=== PATIENT | female | born 1990 | race Caucasian/White ===

== ENCOUNTER 2017-06-15 11:51 | Emergency (ER) | payer MEDICAID, OTHER ==
[2017-06-15 11:51] VITALS: BMI 21.6
[2017-06-15 13:51] LABS: HCG,QUALITATIVE URINE NEGATIVE (NEGATIVE)
[2017-06-15] MEDS ORDERED: Sodium Chloride 0.9% 1,000 ML IV ONE (13:53)
[2017-06-15 13:58] LABS: SQUAMOUS EPITHIAL 3 /hpf (0-5); URINE BACTERIA RARE (<OCC); URINE BILIRUBIN NEGATIVE (NEGATIVE); URINE BLOOD NEGATIVE (NEGATIVE); URINE CLARITY Clear (Clear); URINE COLOR Yellow (YELLOW); URINE GLUCOSE (UA) NORMAL (Normal); URINE LEUKOCYTE ESTERASE TRACE Leu/uL (Negative); URINE NITRATE NEGATIVE (NEGATIVE); URINE PROTEIN NEGATIVE (NEGATIVE); URINE UROBILINOGEN NORMAL mg/dL (0.2-1.0)
[2017-06-15] MEDS ORDERED: Sodium Chloride 0.9% 1,000 ML ONE (14:00)
[2017-06-15 14:02] LABS: BASO # 0.1 K/uL (0.0-0.2); BASO % 0.8 % (0.0-2.0); EOS # 0.1 K/uL (0.0-0.7); EOS % 1.2 % (0.0-4.0); HEMOGLOBIN 12.5 g/dL (11.0-16.0); LYMPH # 2.1 K/uL (1.0-4.3); LYMPH % 28.5 % (20.0-40.0); MEAN CORPUSCULAR HEMOGLOBIN 32.5 pg (27.0-31.0); MEAN PLATELET VOLUME 8.6 fL (7.2-11.7); MONO # 0.5 K/uL (0.0-0.8); MONO % 6.7 % (0.0-10.0); NEUT # 4.7 K/uL (1.8-7.0); NEUT % 62.8 % (50.0-75.0); NRBC % 0.1 % (0.0-2.0); RBC 3.85 Mil/uL (3.80-5.20); RED CELL DISTRIBUTION WIDTH 13.3 % (11.5-14.5); WHITE BLOOD COUNT 7.5 K/uL (4.8-10.8)
[2017-06-15 14:28] LABS: ALB/GLOB RATIO 1.5 (1.0-2.1); ALT/SGPT 26 U/L (9-52); AST/SGOT 19 U/L (14-36); BLOOD UREA NITROGEN 9 mg/dL (7-17); CALCIUM 8.5 mg/dl (8.6-10.4); GFR AFRICAN-AMERICAN > 60; GFR NON-AFRICAN AMERICAN > 60; LIPASE 95 U/L (23-300)
--- NOTE | 2017-06-15 14:46 | C.PDOC ---
Time Seen by Provider: 06/15/17 13:06 Chief Complaint (Nursing): Abdominal Pain History Per: Patient Onset/Duration Of Symptoms: Days (about 2 months), Waxing/Waning Current Symptoms Are (Timing): Still Present Severity: Moderate Location Of Pain/Discomfort: LUQ Quality Of Discomfort: Unable To Describe, "Pain" Exacerbating Factors: Food Alleviating Factors: None Additional History Per: Prior Records Past Medical History Reviewed: Historical Data, Nursing Documentation, Vital Signs Vital Signs: Last Vital Signs Temp 98.7 F 06/15/17 11:54 Pulse 70 06/15/17 11:54 Resp 16 06/15/17 11:54 BP 105/65 06/15/17 11:54 Pulse Ox 96 06/15/17 11:54 - Medical History PMH: Anxiety, Asthma, Depression, Kidney Stones Other Surgeries: No abdominal surgeries. - [facility] Procedures ANESTH INJECT-SPIN CANAL (04/23/13) MONITORING NOS (03/25/13) MANUAL ASSIST DELIV NEC (04/23/13) Family History: States: Unknown Family Hx - Social History Hx Tobacco Use: No Hx Alcohol Use: No Hx Substance Use: Yes - Immunization History Hx Tetanus Toxoid Vaccination: No Hx Influenza Vaccination: No Hx Pneumococcal Vaccination: No Review Of Systems Except As Marked, All Systems Reviewed And Found Negative. Constitutional: Negative for: Weakness Cardiovascular: Negative for: Chest Pain Respiratory: Negative for: Shortness of Breath, Hemoptysis Gastrointestinal: Positive for: Nausea, Vomiting, Abdominal Pain. Negative for : Diarrhea, Constipation Genitourinary: Negative for: Dysuria Musculoskeletal: Negative for: Neck Pain, Leg Pain Skin: Negative for: Rash Neurological: Negative for: Weakness, Numbness Physical Exam - Physical Exam Appears: Non-toxic, No Acute Distress Skin: Normal Color, Warm, Dry, No Rash Head: Atraumatic, Normacephalic Eye(s): bilateral: Normal Inspection, PERRL, EOMI Neck: Normal ROM, Supple Cardiovascular: Rhythm Regular Respiratory: Normal Breath Sounds, No Accessory Muscle Use Gastrointestinal/Abdominal: Soft, Tenderness (LUQ, mild), No Distention, No Guarding, No Rebound Extremity: Normal ROM, No Pedal Edema, No Calf Tenderness Neurological/Psych: Oriented x3, Normal Motor, Normal Sensation ED Course And Treatment - Laboratory Results Result Diagrams: 06/15/17 13:57 06/15/17 13:57 Lab Interpretation: No Acute Changes Urine POC: Negative O2 Sat by Pulse Oximetry: 96 Pulse Ox Interpretation: Normal Progress - Interventions Interventions:: Observation, Intravenous fluid - Medications Administered Intravenous: Antiemetic, H-2 natalie - Data Reviewed Data Reviewed: Lab, Old records - Patient Status Patient status: Mostly improved - Continuity of Care Discussed patient case with:: Patient, ED Nurse - Patient Plan Patient Plan: Discharge, F/U with PCP Disposition Counseled Patient/Family Regarding: Studies Performed, Diagnosis, Need For Followup, Rx Given - Disposition Referrals: [facility] [Outside] Disposition: HOME/ ROUTINE Disposition Time: 14:51 Condition: IMPROVED Additional Instructions: Follow up in the clinic within 1-2 weeks for further evaluation and treatment. Return to the ER if you develop worsening of symptoms or if you have any other concerns. Prescriptions: Famotidine [Pepcid] 20 mg PO BID #30 tab Instructions: Gastritis (ED) - Clinical Impression Clinical Impression: Abdominal pain, Nausea and vomiting
[2017-06-15 15:02] VITALS: BP 98/65; PULSE 64; RESP 20; TEMP 97.5; O2SAT 99
== END 2017-06-15 15:37 | disposition home or self-care (01) ==
LOC: C.ER 11:51
DX: R10.12 Left upper quadrant pain (principal); R11.2 Nausea with vomiting, unspecified
CPT/HCPCS: 80053; 81001; 83690; 84703; 85025; 96361; 96374; 96375; 99285; J2765; J7040

== ENCOUNTER 2018-01-04 09:28 | Emergency (ER) | payer MEDICAID, OTHER ==
[2018-01-04 09:28] VITALS: BMI 21.6
[2018-01-04 09:37] VITALS: O2SAT 98
[2018-01-04] MEDS ORDERED: Sodium Chloride 0.9% 1,000 ML IV ONE (10:00)
[2018-01-04] MEDS ORDERED: Sodium Chloride 0.9% 1,000 ML ONE (10:20)
[2018-01-04 10:29] LABS: BASO % 0.8 % (0.0-2.0); EOS # 0.1 K/uL (0.0-0.7); EOS % 0.9 % (0.0-4.0); HEMOGLOBIN 12.2 g/dL (11.0-16.0); LYMPH # 1.4 K/uL (1.0-4.3); LYMPH % 22.7 % (20.0-40.0); MEAN CELL VOLUME 93.2 fL (81.0-99.0); MEAN CORPUSCULAR HEMOGLOBIN 32.3 pg (27.0-31.0); MEAN CORPUSCULAR HGB CONC 34.7 g/dL (33.0-37.0); MEAN PLATELET VOLUME 8.5 fL (7.2-11.7); MONO # 0.5 K/uL (0.0-0.8); MONO % 7.4 % (0.0-10.0); NEUT # 4.2 K/uL (1.8-7.0); NEUT % 68.2 % (50.0-75.0); RBC 3.77 Mil/uL (3.80-5.20); RED CELL DISTRIBUTION WIDTH 13.1 % (11.5-14.5); WHITE BLOOD COUNT 6.1 K/uL (4.8-10.8)
[2018-01-04 10:49] LABS: ALB/GLOB RATIO 1.7 (1.0-2.1); ALBUMIN 4.3 g/dL (3.5-5.0); ALT/SGPT 30 U/L (9-52); AST/SGOT 13 U/L (14-36); BLOOD UREA NITROGEN 5 mg/dL (7-17); GFR AFRICAN-AMERICAN > 60; GFR NON-AFRICAN AMERICAN > 60; LIPASE 37 U/L (23-300)
[2018-01-04 11:12] LABS: URINE BILIRUBIN NEGATIVE (NEGATIVE); URINE BLOOD NEGATIVE (NEGATIVE); URINE CLARITY Clear (Clear); URINE COLOR Yellow (YELLOW); URINE GLUCOSE (UA) NORMAL (Normal); URINE LEUKOCYTE ESTERASE NEG Leu/uL (Negative); URINE PROTEIN NEGATIVE (NEGATIVE); URINE UROBILINOGEN NORMAL mg/dL (0.2-1.0)
--- NOTE | 2018-01-04 13:17 | C.PDOC ---
History Of Present Illness 27 year old female presents to the ED for evaluation of left-sided abdominal pain (contrary to triage) which began 2 days ago. Patient also complains of nausea, vomiting, and dysuria. She denies fever, chills, vaginal bleeding/ discharge. Time Seen by Provider: 01/04/18 09:44 Chief Complaint (Nursing): Abdominal Pain History Per: Patient History/Exam Limitations: no limitations Onset/Duration Of Symptoms: Days (2) Current Symptoms Are (Timing): Still Present Location Of Pain/Discomfort: Other (left-sided ) Radiation Of Pain To:: None Quality Of Discomfort: "Pain" Associated Symptoms: Nausea, Vomiting, Urinary Symptoms (dysuria ). denies: Fever, Chills Additional History Per: Patient Abnormal Vaginal Bleeding: No Past Medical History Reviewed: Historical Data, Nursing Documentation, Vital Signs Vital Signs: Last Vital Signs Temp 98.5 F 01/04/18 13:00 Pulse 60 01/04/18 13:00 Resp 18 01/04/18 13:00 BP 125/69 01/04/18 13:00 Pulse Ox 98 01/04/18 13:48 - Medical History PMH: Anemia, Anxiety, Asthma, Back Problems, Depression, Kidney Stones Surgical History: No Surg Hx - [facility] Procedures ANESTH INJECT-SPIN CANAL (04/23/13) MONITORING NOS (03/25/13) MANUAL ASSIST DELIV NEC (04/23/13) Family History: States: Unknown Family Hx - Social History Hx Tobacco Use: No Hx Alcohol Use: No Hx Substance Use: No - Immunization History Hx Tetanus Toxoid Vaccination: No Hx Influenza Vaccination: No Hx Pneumococcal Vaccination: No Review Of Systems Constitutional: Negative for: Fever, Chills Gastrointestinal: Positive for: Nausea, Vomiting, Abdominal Pain (left-sided ) Genitourinary: Positive for: Dysuria. Negative for: Vaginal Discharge, Vaginal Bleeding Physical Exam - Physical Exam Appears: Non-toxic, No Acute Distress Skin: Normal Color, Warm, Dry Head: Atraumatic, Normacephalic Eye(s): bilateral: Normal Inspection Oral Mucosa: Moist Neck: Supple Chest: Symmetrical, No Deformity, No Tenderness Cardiovascular: Rhythm Regular, No Murmur Respiratory: Normal Breath Sounds, No Rales, No Rhonchi, No Wheezing Gastrointestinal/Abdominal: Soft, Tenderness (left lower quadrant ), No Guarding , No Rebound Back: CVA Tenderness (left-sided) Extremity: Normal ROM, Capillary Refill (less than 2 seconds ) Neurological/Psych: Oriented x3, Normal Speech, Normal Cognition ED Course And Treatment - Laboratory Results Result Diagrams: 01/04/18 10:16 01/04/18 10:16 O2 Sat by Pulse Oximetry: 98 (on RA) Pulse Ox Interpretation: Normal - CT Scan/US OB pelvic US Other Rad Studies (CT/US): Read By Radiologist, Radiology Report Reviewed CT/US Interpretation: PROCEDURE: OB Pelvic Ultrasound. HISTORY: abd. pain. LMP: Unknown. Serum beta HCG [id number]. COMPARISON: No relevant prior imaging. FINDINGS: UTERUS: Gestational sac: Single intrauterine gestation. Measures 1.9 cm compatible with estimated gestational age of 6 weeks, 3 days. Yolk sac: Measures 0.4 cm. pole: [place]-rump length measures 0.4 cm compatible with estimated gestational age 6 weeks, 1 day. Heart rate: 118 bpm. age (Ultrasound estimated): 6 weeks, 2 days. Nancy-gestational hemorrhage: None. Date of delivery (Ultrasound estimated) : 08/28/2018. Uterus measures 11.2 x 5.6 x 5.9 cm. Anteverted. Normal in size and appearance. CERVIX: Measures 3.3 cm. Long and closed. No cervical abnormality seen. RIGHT OVARY: Measures 2.9 x 1.8 x 2.5 cm. No mass lesion. Normal flow. LEFT OVARY: Measures 3.5 x 2.9 x 3.8 cm. No solid mass. Normal flow. FREE FLUID: None. OTHER FINDINGS: None. IMPRESSION: Single live intrauterine with average ultrasound age of 6 weeks, 2 days. heart rate 118 beats per minute. Cervix long and closed. . Medical Decision Making Medical Decision Making: Assessment: 27 year old female with abdominal pain Progress: Bloodwork, urinalysis, OB Transvaginal Ultrasound, Obstructive Series ordered. Pepcid IVP, Reglan IVP, Tylenol PO, Zofran IVP, and IV Fluids given. threatened miscarriage patient resting comfortably. Will discharge home to follow up with ob in 2 days Disposition Counseled Patient/Family Regarding: Studies Performed, Diagnosis, Need For Followup, Rx Given - Disposition Referrals: [facility] [Outside] [facility] [Outside] Disposition: HOME/ ROUTINE Disposition Time: 13:32 Condition: STABLE Additional Instructions: follow up with clinic within 2 days call to make an appointment take medications as needed return to ER if symptoms worsens or progress Prescriptions: Ondansetron ODT [Zofran ODT] 4 mg PO TID PRN #12 odt PRN Reason: Nausea/Vomiting Instructions: Threatened Miscarriage (DC) Forms: [facility] (Thai), General Discharge Instructions - Clinical Impression Clinical Impression: Threatened miscarriage - Scribe Statement The provider has reviewed the documentation as recorded by the Scribe (Melinda Loya) Provider Attestation: All medical record entries made by the Scribe were at my direction and personally dictated by me. I have reviewed the chart and agree that the record accurately reflects my personal performance of the history, physical exam, medical decision making, and the department course for this patient. I have also personally directed, reviewed, and agree with the discharge instructions and disposition.
--- NOTE | 2018-01-04 13:24 | US ---
Date of service: 01/04/2018 PROCEDURE: OB Pelvic Ultrasound HISTORY: abd. pain LMP: Unknown Serum beta HCG [id number] COMPARISON: No relevant prior imaging. FINDINGS: UTERUS: Gestational sac: Single intrauterine gestation. Measures 1.9 cm compatible with estimated gestational age of 6 weeks, 3 days. Yolk sac: Measures 0.4 cm. pole: [place]-rump length measures 0.4 cm compatible with estimated gestational age 6 weeks, 1 day. Heart rate: 118 bpm. age (Ultrasound estimated): 6 weeks, 2 days Nancy-gestational hemorrhage: None. Date of delivery (Ultrasound estimated) : 08/28/2018 Uterus measures 11.2 x 5.6 x 5.9 cm. Anteverted. Normal in size and appearance. CERVIX: Measures 3.3 cm. Long and closed. No cervical abnormality seen. RIGHT OVARY: Measures 2.9 x 1.8 x 2.5 cm. No mass lesion. Normal flow. LEFT OVARY: Measures 3.5 x 2.9 x 3.8 cm. No solid mass. Normal flow. FREE FLUID: None. OTHER FINDINGS: None. IMPRESSION: Single live intrauterine with average ultrasound age of 6 weeks, 2 days. heart rate 118 beats per minute. Cervix long and closed. .
[2018-01-04 13:25] VITALS: BP 125/69; PULSE 60; RESP 18; TEMP 98.5
== END 2018-01-04 13:50 | disposition home or self-care (01) ==
LOC: C.ER 09:28
DX: O20.0 Threatened abortion (principal); Z3A.01 Less than 8 weeks gestation of pregnancy
CPT/HCPCS: 76801; 80053; 81001; 83690; 84702; 85025; 96361; 96374; 96375; 99284; J2405; J2765; J7030

== ENCOUNTER 2018-01-08 10:51 | Emergency (ER) | payer OTHER ==
[2018-01-08 10:54] VITALS: BMI 21.1
[2018-01-08 10:57] VITALS: PULSE 85; RESP 18
[2018-01-08] MEDS ORDERED: Lactated Ringer's 1,000 ML IV STA (11:00)
--- NOTE | 2018-01-08 11:23 | C.PDOC ---
History Of Present Illness 27 year old female patient who is 6 weeks and 4 days (confirmed by US) with hx of asthma presents to the ER with partner with c/o abdominal pain and daily vomiting. Patient reports she has been vomiting everyday for about 3 weeks. She also states that sometimes during her vomiting episodes, she would also have diarrhea. Patient claims that her other two have the same symptoms. Associative symptoms are SOB, sweating, and chills. Patient also says "I can't keep still". Her LNMP was in October 2017. Patient notes she made an appointment with Dr. 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 , P: 1, A: 1. Time Seen by Provider: 01/08/18 11:00 Chief Complaint (Nursing): GI Problem History Per: Patient, Other (partner) History/Exam Limitations: no limitations Onset/Duration Of Symptoms: Days ([id number]) Current Symptoms Are (Timing): Still Present Context: Other (6 weeks, 4 days ) Past Medical History Reviewed: Historical Data, Nursing Documentation, Vital Signs Vital Signs: Last Vital Signs Temp 97.6 F 01/08/18 10:54 Pulse 85 01/08/18 10:54 Resp 18 01/08/18 10:54 BP 135/83 01/08/18 10:54 Pulse Ox 96 01/08/18 11:31 - Medical History PMH: Anemia, Anxiety, Asthma, Back Problems, Depression, Kidney Stones - [facility] Procedures ANESTH INJECT-SPIN CANAL (04/23/13) MONITORING NOS (03/25/13) MANUAL ASSIST DELIV NEC (04/23/13) Family History: States: Unknown Family Hx - Social History Hx Tobacco Use: No Hx Alcohol Use: No Hx Substance Use: No - Immunization History Hx Tetanus Toxoid Vaccination: No Hx Influenza Vaccination: No Hx Pneumococcal Vaccination: No Review Of Systems Except As Marked, All Systems Reviewed And Found Negative. Constitutional: Positive for: Chills, Sweats Respiratory: Positive for: Shortness of Breath Gastrointestinal: Positive for: Vomiting, Diarrhea Physical Exam - Physical Exam Appears: Well, Non-toxic, No Acute Distress Skin: Normal Color, Warm, Dry Head: Atraumatic, Normacephalic Eye(s): bilateral: Normal Inspection Tongue: Other (slightly dry ) Throat: Normal Neck: Normal ROM, Supple Chest: Symmetrical, No Deformity Cardiovascular: Rhythm Regular Respiratory: Normal Breath Sounds, No Rales, No Rhonchi, No Wheezing Gastrointestinal/Abdominal: Soft, Tenderness (lower abdominal tenderness) Back: No CVA Tenderness Extremity: Normal ROM (x4) Neurological/Psych: Oriented x3, Normal Speech, Normal Motor, Normal Sensation, Normal Reflexes Gait: Steady ED Course And Treatment O2 Sat by Pulse Oximetry: 96 (RA) Pulse Ox Interpretation: Normal Medical Decision Making Medical Decision Making: Initial impression: Hyperemesis gravidarum. Plans: -- Lactated Ringers IV fluids -- Reglan 10 mg -- Blood work -- UA Disposition - Disposition Forms: [employer] (Frisian) - Scribe Statement The provider has reviewed the documentation as recorded by the Mariela Dubois Do Provider Attestation: All medical record entries made by the Scribe were at my direction and personally dictated by me. I have reviewed the chart and agree that the record accurately reflects my personal performance of the history, physical exam, medical decision making, and the department course for this patient. I have also personally directed, reviewed, and agree with the discharge instructions and disposition.
[2018-01-08] MEDS ORDERED: Lactated Ringer's 1,000 ML ONE (11:24)
--- NOTE | 2018-01-08 11:37 | C.PDOC ---
History Of Present Illness Pt is a 27 year old female patient who is 6 weeks and 4 days (by US) with hx of asthma presents to the ER with partner with c/o abdominal pain and daily vomiting. Patient reports she has been vomiting everyday for about 3 weeks. She also states that sometimes during her vomiting episodes, she would also have diarrhea. Patient claims that her other two have the same symptoms of "hyperemesis gravidarum". Associative symptoms are SOB, sweating, and chills. Patient also says "I can't keep still". Her LNMP was in October 2017. Patient notes she made an appointment with Dr. 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 , P: 1, A: 1. Pt states that she is not going to keep this baby. Pt has not weighed herself so she is unsure if she has lost weight w/ this . Pt here in ED with hyperemesis 2 days ago and had ultrasound showing an IUP. PMD: In [facility] Time Seen by Provider: 01/08/18 11:00 Chief Complaint (Nursing): GI Problem History Per: Patient, Other (Partner) History/Exam Limitations: no limitations Onset/Duration Of Symptoms: Days (x3 weeks) Current Symptoms Are (Timing): Still Present Past Medical History Reviewed: Historical Data, Nursing Documentation, Vital Signs Vital Signs: Last Vital Signs Temp 99.3 F 01/08/18 12:45 Pulse 85 01/08/18 12:45 Resp 18 01/08/18 10:54 BP 105/61 01/08/18 12:45 Pulse Ox 96 01/08/18 13:24 - Medical History PMH: Anemia, Anxiety, Asthma, Back Problems, Depression, Kidney Stones - [facility] Procedures ANESTH INJECT-SPIN CANAL (04/23/13) MONITORING NOS (03/25/13) MANUAL ASSIST DELIV NEC (04/23/13) Family History: States: Other Other Family History: Breast cancer - Social History Hx Tobacco Use: No Hx Alcohol Use: No Hx Substance Use: No - Immunization History Hx Tetanus Toxoid Vaccination: No Hx Influenza Vaccination: No Hx Pneumococcal Vaccination: No Review Of Systems Except As Marked, All Systems Reviewed And Found Negative. Constitutional: Positive for: Chills, Sweats Respiratory: Positive for: Shortness of Breath Gastrointestinal: Positive for: Vomiting, Abdominal Pain, Diarrhea Physical Exam - Physical Exam Appears: Well, Non-toxic, No Acute Distress Skin: Normal Color, Warm, Dry Head: Atraumatic, Normacephalic Eye(s): bilateral: Normal Inspection, EOMI Ear(s): Bilateral: Normal Nose: Normal Oral Mucosa: Moist Tongue: Other (slightly dry) Throat: Normal Neck: Normal ROM, Supple Chest: Symmetrical, No Deformity Cardiovascular: Rhythm Regular Respiratory: Normal Breath Sounds, No Rales, No Rhonchi, No Wheezing Gastrointestinal/Abdominal: Soft, Tenderness (Lower abdominal tenderness) Back: No CVA Tenderness Extremity: Normal ROM (x4) Neurological/Psych: Oriented x3, Normal Speech, Normal Motor, Normal Sensation, Normal Reflexes Gait: Steady ED Course And Treatment - Laboratory Results Result Diagrams: 01/08/18 11:48 01/08/18 11:48 O2 Sat by Pulse Oximetry: 96 (RA) Pulse Ox Interpretation: Normal Medical Decision Making Medical Decision Making: Initial impression: hyperemesis gravidarum Initial Plan: -- Lactated Ringer's IV fluids -- Reglan 10mg -- blood work -- UA 1:21 PM - Pt feels better. Will d/c home. Disposition Counseled Patient/Family Regarding: Diagnosis, Need For Followup, Rx Given - Disposition Disposition: HOME/ ROUTINE Disposition Time: 13:21 Condition: IMPROVED Additional Instructions: Karissayeny, thank you for letting us take care of you today. Return to the ER if your symptoms worsen, or if any problems. 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 Please be sure to go to this appointment. Take the medicine listed below as prescribed. / Prescriptions: Ondansetron ODT [Zofran ODT] 1 odt PO BID PRN #6 odt PRN Reason: Nausea/Vomiting Instructions: Hyperemesis Gravidarum, Nausea and Vomiting of (DC) Forms: [employer] (Upper Sorbian) Print Language: SPANISH - POA Present On Arrival: None - Clinical Impression Clinical Impression: Hyperemesis gravidarum - Scribe Statement The provider has reviewed the documentation as recorded by the Mariela Dubois Do Provider Attestation: All medical record entries made by the Scribe were at my direction and personally dictated by me. I have reviewed the chart and agree that the record accurately reflects my personal performance of the history, physical exam, medical decision making, and the department course for this patient. I have also personally directed, reviewed, and agree with the discharge instructions and disposition.
[2018-01-08 11:57] LABS: BASO % 0.4 % (0.0-2.0); EOS % 0.4 % (0.0-4.0); HEMOGLOBIN 13.2 g/dL (11.0-16.0); LYMPH # 1.2 K/uL (1.0-4.3); LYMPH % 13.7 % (20.0-40.0); MEAN CELL VOLUME 92.4 fL (81.0-99.0); MEAN CORPUSCULAR HEMOGLOBIN 32.6 pg (27.0-31.0); MEAN CORPUSCULAR HGB CONC 35.2 g/dL (33.0-37.0); MEAN PLATELET VOLUME 8.8 fL (7.2-11.7); MONO # 0.4 K/uL (0.0-0.8); MONO % 4.2 % (0.0-10.0); NEUT # 7.2 K/uL (1.8-7.0); NEUT % 81.3 % (50.0-75.0); RBC 4.04 Mil/uL (3.80-5.20); RED CELL DISTRIBUTION WIDTH 13.5 % (11.5-14.5); WHITE BLOOD COUNT 8.9 K/uL (4.8-10.8)
[2018-01-08] MEDS ORDERED: Sodium Chloride 0.9% 1,000 ML IV ONE (12:08)
[2018-01-08 12:10] LABS: ALB/GLOB RATIO 1.7 (1.0-2.1); ALBUMIN 4.6 g/dL (3.5-5.0); ALT/SGPT 20 U/L (9-52); AST/SGOT 17 U/L (14-36); BLOOD UREA NITROGEN 6 mg/dL (7-17); CALCIUM 9.3 mg/dl (8.6-10.4); GFR AFRICAN-AMERICAN > 60; GFR NON-AFRICAN AMERICAN > 60
[2018-01-08 12:45] VITALS: BP 105/61; TEMP 99.3
[2018-01-08 13:24] VITALS: O2SAT 96
[2018-01-08 13:24] LABS: SQUAMOUS EPITHIAL 16 /hpf (0-5); URINE BACTERIA RARE (<OCC); URINE BILIRUBIN NEGATIVE (NEGATIVE); URINE BLOOD NEGATIVE (NEGATIVE); URINE CLARITY Hazy (Clear); URINE COLOR Yellow (YELLOW); URINE GLUCOSE (UA) NORMAL (Normal); URINE LEUKOCYTE ESTERASE 1+ Leu/uL (Negative); URINE PROTEIN NEGATIVE (NEGATIVE); URINE UROBILINOGEN NORMAL mg/dL (0.2-1.0)
== END 2018-01-08 13:43 | disposition home or self-care (01) ==
LOC: C.ER 10:51
DX: O21.0 Mild hyperemesis gravidarum (principal); Z3A.01 Less than 8 weeks gestation of pregnancy
CPT/HCPCS: 80053; 81001; 84702; 85025; 96374; 99284; J2765; J7120

== ENCOUNTER 2018-01-20 08:53 | Emergency (ER) | payer OTHER ==
[2018-01-20 08:54] VITALS: BMI 21.1
[2018-01-20 09:07] VITALS: RESP 18; TEMP 97.9
--- NOTE | 2018-01-20 09:29 | C.PDOC ---
History Of Present Illness 27 y/o female currently 7 weeks presents to ED with c/o abdominal pain and back pain for 1 month associated with fever, chills, nausea and vomiting. Patient states symptoms are improved with CBD oil and denies diarrhea , dysuria, vaginal bleeding, vaginal discharge or any other complaints at this time. Time Seen by Provider: 01/20/18 09:09 Chief Complaint (Nursing): Abdominal Pain History Per: Patient History/Exam Limitations: no limitations Onset/Duration Of Symptoms: Days Current Symptoms Are (Timing): Still Present Past Medical History Reviewed: Historical Data, Nursing Documentation, Vital Signs Vital Signs: Last Vital Signs Temp 97.9 F 01/20/18 09:03 Pulse 86 01/20/18 14:44 Resp 18 01/20/18 14:44 BP 134/82 01/20/18 14:44 Pulse Ox 97 01/20/18 14:44 - Medical History PMH: Anemia, Anxiety, Asthma, Back Problems, Depression, Kidney Stones Surgical History: No Surg Hx - [facility] Procedures ANESTH INJECT-SPIN CANAL (04/23/13) MONITORING NOS (03/25/13) MANUAL ASSIST DELIV NEC (04/23/13) Family History: States: No Known Family Hx - Social History Hx Tobacco Use: No Hx Alcohol Use: No Hx Substance Use: Yes - Immunization History Hx Tetanus Toxoid Vaccination: No Hx Influenza Vaccination: No Hx Pneumococcal Vaccination: No Review Of Systems Constitutional: Positive for: Fever, Chills Gastrointestinal: Positive for: Nausea, Vomiting, Abdominal Pain Genitourinary: Negative for: Dysuria, Hematuria, Vaginal Bleeding Musculoskeletal: Positive for: Back Pain Skin: Negative for: Rash Neurological: Negative for: Weakness Physical Exam - Physical Exam Appears: Non-toxic, No Acute Distress Skin: Warm, Dry, No Rash Head: Atraumatic, Normacephalic Eye(s): bilateral: Normal Inspection Oral Mucosa: Moist Neck: Supple Cardiovascular: Rhythm Regular Respiratory: Normal Breath Sounds, No Rales, No Rhonchi, No Wheezing Gastrointestinal/Abdominal: Soft, No Tenderness, No Guarding, No Rebound Back: No CVA Tenderness, No Paraspinal Tenderness Neurological/Psych: Oriented x3, Normal Speech, Normal Cognition ED Course And Treatment - Laboratory Results Result Diagrams: 01/20/18 10:15 01/20/18 10:15 O2 Sat by Pulse Oximetry: 99 (RA) Pulse Ox Interpretation: Normal Medical Decision Making Medical Decision Making: Prior records viewed: Patient was seen at ED on 01/08/18 for similar symptoms, had blood work within normal limits. Patient found to have improved on re evaluation and was discharged home. On re-exam, the patient reports improvement of symptoms. Lungs are CTA, heart is RRR, abdomen is soft, non-tender and tolerating Po well. Follow up with the medical doctor within 1-2 days without fail. Return if worsened. Disposition - Disposition Referrals: [facility] [Outside] [facility] [Outside] Disposition: HOME/ ROUTINE Disposition Time: 14:09 Condition: STABLE Additional Instructions: Follow up with the medical doctor within 1-2 days. Return if worsened. Prescriptions: Calcium Carbonate [Tums] 200 mg PO Q6 PRN #40 ctb PRN Reason: abdominal pain Metoclopramide [Reglan] 1 tab PO TID PRN #25 tab PRN Reason: Nausea/Vomiting Instructions: Hyperemesis Gravidarum Forms: [employer] (Japanese) - Clinical Impression Clinical Impression: Hyperemesis arising during , Gastritis - PA / TECHNICAL ASSISTANCE CONSULTANT / Resident Statement MD/DO has reviewed & agrees with the documentation as recorded. - Scribe Statement The provider has reviewed the documentation as recorded by the Mariela Schmitt All medical record entries made by the Aaronibnishant were at my direction and personally dictated by me. I have reviewed the chart and agree that the record accurately reflects my personal performance of the history, physical exam, medical decision making, and the department course for this patient. I have also personally directed, reviewed, and agree with the discharge instructions and disposition.
[2018-01-20] MEDS ORDERED: Sodium Chloride 0.9% 1,000 ML IV STA (09:54)
[2018-01-20] MEDS ORDERED: Sodium Chloride 0.9% 1,000 ML ONE (10:06)
[2018-01-20 10:28] LABS: BASO % 0.3 % (0.0-2.0); EOS % 0.2 % (0.0-4.0); LYMPH # 1.6 K/uL (1.0-4.3); LYMPH % 22.8 % (20.0-40.0); MEAN CORPUSCULAR HEMOGLOBIN 32.1 pg (27.0-31.0); MEAN CORPUSCULAR HGB CONC 35.7 g/dL (33.0-37.0); MEAN PLATELET VOLUME 8.1 fL (7.2-11.7); MONO # 0.5 K/uL (0.0-0.8); MONO % 7.5 % (0.0-10.0); NEUT # 4.7 K/uL (1.8-7.0); NEUT % 69.2 % (50.0-75.0); RBC 3.47 Mil/uL (3.80-5.20); RED CELL DISTRIBUTION WIDTH 12.9 % (11.5-14.5); WHITE BLOOD COUNT 6.8 K/uL (4.8-10.8)
[2018-01-20 10:32] LABS: HEMOGLOBIN 11.1 g/dL (11.0-16.0); MEAN CELL VOLUME 89.9 fL (81.0-99.0)
[2018-01-20 10:48] LABS: ALB/GLOB RATIO 1.7 (1.0-2.1); ALBUMIN 3.9 g/dL (3.5-5.0); ALT/SGPT 26 U/L (9-52); AST/SGOT 15 U/L (14-36); BLOOD UREA NITROGEN 5 mg/dL (7-17); CALCIUM 8.8 mg/dl (8.6-10.4); GFR AFRICAN-AMERICAN > 60; GFR NON-AFRICAN AMERICAN > 60; LIPASE 48 U/L (23-300)
[2018-01-20 11:07] LABS: SQUAMOUS EPITHIAL 5 /hpf (0-5); URINE BACTERIA RARE (<OCC); URINE BILIRUBIN NEGATIVE (NEGATIVE); URINE BLOOD NEGATIVE (NEGATIVE); URINE CLARITY Hazy (Clear); URINE COLOR Amber (YELLOW); URINE GLUCOSE (UA) NORMAL (Normal); URINE LEUKOCYTE ESTERASE NEG Leu/uL (Negative); URINE PROTEIN 2+ mg/dL (NEGATIVE)
--- NOTE | 2018-01-20 12:55 | US ---
Abdominal ultrasound History: Abdominal pain. Comparison: None available. Technique: Real-time sonography was performed through the abdomen. Findings: Liver: 14 centimeters in length. Normal echogenicity. Gallbladder: 6 x 3 x 3 millimeter nonmobile echogenic foci at the gallbladder wall at the level of the neck of the gallbladder suggestive for possible polyp. Normal wall thickness of 1.7 millimeters. Negative sonographic Villafuerte's sign. Common bile duct measures 3 millimeters, within normal limits. Limited visualization of the pancreas. Spleen measures 9.3 centimeters in length, within normal limits. Visualized aorta and IVC are preserved. Right kidney: 11.4 x 4.6 x 4.3 centimeters. No calculi or hydronephrosis. Left Kidney: 11.0 x 4.9 x 5.5 centimeters. No calculi or hydronephrosis. Impression: 6 x 3 x 3 millimeter nonmobile echogenic foci at the gallbladder wall at the level of the neck of the gallbladder suggestive for possible polyp. Limited visualization of the pancreas.
[2018-01-20] MEDS ORDERED: Aluminum Hydroxide/Magnesium Hydroxide Susp (30 mL) PO STA (14:07)
[2018-01-20] MEDS ORDERED: Alum-Mag Hydrox-Simethicone Susp (30 mL) ONE (14:40)
[2018-01-20 14:45] VITALS: BP 134/82; PULSE 86
[2018-01-21 22:43] VITALS: O2SAT 99
== END 2018-01-20 14:45 | disposition home or self-care (01) ==
LOC: C.ER 08:53
DX: O21.0 Mild hyperemesis gravidarum (principal); O26.891 Other specified pregnancy related conditions, first trimester; K29.70 Gastritis, unspecified, without bleeding; Z3A.01 Less than 8 weeks gestation of pregnancy
CPT/HCPCS: 76700; 80053; 81001; 83690; 85025; 96361; 96374; 99284; J2765; J7030